=== PATIENT | male | born 1955 | race Caucasian/White ===

== ENCOUNTER → 2020-05-26 08:27 | Outpatient (BNVA) | payer BC, SELFPAY | PROVIDERS: PCP Internal Medicine; Visit Provider Urology | DX: N32.0 Bladder-neck obstruction (principal); N52.9 Male erectile dysfunction, unspecified | CPT/HCPCS: 81002 ==

== ENCOUNTER → 2020-11-22 09:06 | Outpatient (BNVA) | payer BC, SELFPAY | PROVIDERS: PCP Internal Medicine; Visit Provider Urology | DX: N52.9 Male erectile dysfunction, unspecified (principal); N32.0 Bladder-neck obstruction | CPT/HCPCS: 51798 ==

== ENCOUNTER → 2021-08-18 13:38 | Outpatient (BNVA) | payer MEDICARE, SELFPAY | PROVIDERS: PCP Internal Medicine; Visit Provider Urology | DX: N52.9 Male erectile dysfunction, unspecified (principal); N32.0 Bladder-neck obstruction; Z79.899 Other long term (current) drug therapy | CPT/HCPCS: Q3014 ==

== ENCOUNTER 2023-01-29 14:48 | Outpatient (AMB) | payer MEDICARE, BC, SELFPAY ==
--- NOTE | 2023-01-29 15:04 | MHC.OFFVIS ---
Intake Intake Visit Reasons: 1Y PVR(E.D/Bladder Outlet Obs) Intake Note: Patient is Present for Follow Up PVR Urology Medication: Tadalafil, Sildenafil Antibiotic Allergies:Penicillin Blood Thinners: None [facility] PVR: Compliants: Allergies penicillin G Allergy (Unknown, Verified 08/18/21 13:39) unknown Cortisone Allergy (Unknown, Uncoded 08/18/21 13:39) unknown Coding
--- NOTE | 2023-01-29 15:06 | A.OFFVIS_ITS ---
Intake Intake Visit Reasons: 1Y(Erectile Dys) Intake Note: Patient is Present for Follow Up Urology Medication: Tadalafil, Sildenafil Antibiotic Allergies: Penicllin Blood Thinners: None Pharmacy: [facility] Allergies penicillin G Allergy (Unknown, Verified 01/29/23 15:07) unknown Cortisone Allergy (Unknown, Uncoded 01/29/23 15:07) unknown Medication List - Last Reconciled 01/29/23 by Clifford Shaikh MD atorvastatin 20 mg PO DAILY azithromycin 250 mg PO DIRECTED lisinopril 10 mg PO DAILY omeprazole 10 mg PO DAILY sildenafil 100 mg PO DAILY PRN 30 days tadalafil 5 mg PO DAILY PRN 90 days HPI HPI Comments History of Present Illness Details Joe CORREA is a very pleasant male. He is a patient of Dr Hernandez. He is seen for the following urologic conditions. - lower urinary tract symptoms - erectile dysfunction Follow-up from trial daily Cialis Doing well Like to continue Has occasional difficulty with urination after taking Sudafed based medications. Recommend Advil p.m. for sleep. Erectile dysfunction Longstanding Headaches Viagra Good salvage with daily Cialis Lower Urinary Tract Symptoms: Good response intermittent pelvic floor exercises Current visit is for further evaluation of, lower urinary tract symptoms - primarily postvoid dribbling. Current treatment includes observation. Prior treatments include procedure 2014 , TURP. Prostate Symptom Score Mild (0-8), Bother 2. PSA 04/14 PSA 0.47 04/16 .42. Prostate volume 30-50gm. Follow-up in 12 months Review of Systems Const Denies chills and Denies fever(s) Card Reports no additional complaints and Denies syncope Resp Denies cough GI Denies abdominal pain and Denies heartburn Reports as per HPI and Denies change in libido Neuro Denies syncope Psych Denies change in libido Endo Denies change in libido Physical Exam Const General: cooperative, healthy appearing, comfortable and no acute distress Orientation/consciousness: patient oriented x3 HEENT Face and sinus: Yes normal facial exam Mouth: moist mucous membranes Neck Neck: Yes normal visual inspection, Yes full ROM and Yes trachea midline Chest Chest palpation & inspection: normal inspection of the chest Resp Effort & Inspection: normal respiratory effort, able to speak in complete sentences and no respiratory distress GI Inspection: Yes normal to inspection Back/Spine/Pelvis Cervical Spine: normal cervical lordosis Thoracic/Lumbar Spine: thoracic and lumbar spine normal to inspection Skin General skin exam: no rashes or lesions noted Neuro General: patient oriented x3, gait normal, tone normal and moves all extremities Extrem General: Yes normal to inspection and Yes capillary refill normal Assessment & Plan Assessment & Plan (1) Erectile dysfunction: Code(s): N52.9 - Male erectile dysfunction, unspecified Qualifiers: Erectile dysfunction type: vasculogenic Vasculogenic erectile dysfunction type: due to arterial insufficiency Qualified Code(s): N52.01 - Erectile dysfunction due to arterial insufficiency (2) Bladder outlet obstruction: Code(s): N32.0 - Bladder-neck obstruction Plan Six month follow-up Patient Instructions: Imaging studies, laboratory and physical exam results were discussed and reviewed in detail. No major barriers to patient understanding were identified. An opportunity to ask questions regarding the treatment plan was provided. All questions were answered. The patient expressed understanding and agreement with the above treatment plan. The patient is aware they should contact our office by phone for worsening of their current condition or the appearance of new urologic symptoms. Compliance is encouraged with any medications and followup testing that is ordered. It is a privilege to participate in the urologic care of your patient. If you have any questions or concerns regarding treatment for the above conditions, or other urologic issues, please do not hesitate to contact me. The office telephone contact is [phone]. This note is constructed using voice recognition software. While every effort has been made to ensure accuracy chain forming machine operator errors may have been included. Yours sincerely, Dr Clifford Shaikh MD, [facility] - Urology Providers of Expert, Compassionate Care for the Genitourinary System Coding Level of Care Code Est Pt Level 3 (20494) Diagnoses Erectile dysfunction due to arterial insufficiency N52.01 Erectile dysfunction type: vasculogenic Vasculogenic erectile dysfunction type: due to arterial insufficiency Bladder outlet obstruction N32.0
== END 2023-01-29 15:32 | disposition home or self-care (01) ==
PROVIDERS: PCP Internal Medicine; Visit Provider Urology
DX: N52.01 Erectile dysfunction due to arterial insufficiency (principal); N32.0 Bladder-neck obstruction
CPT/HCPCS: 99213

== ENCOUNTER → 2023-01-29 14:48 | Outpatient (BNVA) | payer MEDICARE, BC, SELFPAY | PROVIDERS: PCP Internal Medicine; Visit Provider Urology | DX: N32.0 Bladder-neck obstruction (principal); N52.01 Erectile dysfunction due to arterial insufficiency | CPT/HCPCS: 99212 ==

== ENCOUNTER 2023-05-24 12:40 | Outpatient (REF) | payer MEDICARE, BC, SELFPAY ==
[2023-05-24 16:32] LABS: Urine Cytology See Pathology rpt
== END 2023-05-24 12:41 | disposition home or self-care (01) ==
LOC: HO.LNP 12:40
PROVIDERS: PCP Internal Medicine; Visit Provider Nurse Practitioner Family
DX: N32.0 Bladder-neck obstruction (principal); R39.9 Unspecified symptoms and signs involving the genitourinary system; N52.01 Erectile dysfunction due to arterial insufficiency
CPT/HCPCS: 81003; 88112; 99212

== ENCOUNTER 2023-05-24 12:40 | Outpatient (AMB) | payer MEDICARE, BC, SELFPAY ==
--- NOTE | 2023-05-24 13:05 | MHC.OFFVIS ---
Intake Intake Visit Reasons: hematuria/ potential cytology Intake Note: Patient is Present for hematuria Urology Medication: Tadalafil, Sildenafil Antibiotic Allergies: Penicllin Blood Thinners: None Pharmacy: [facility] Cotton Wringer Required: No Accompanied by: Self / Same As Patient Allergies penicillin G Allergy (Unknown, Verified 05/25/23 18:03) unknown Cortisone Allergy (Unknown, Uncoded 05/25/23 18:03) unknown Medication List - Last Reconciled 05/25/23 by SUMEET Clarke- atorvastatin 20 mg PO DAILY lisinopril 10 mg PO DAILY omeprazole 10 mg PO DAILY sildenafil 100 mg PO DAILY PRN 30 days tadalafil 5 mg PO DAILY PRN 90 days HPI HPI Comments History of Present Illness Details Joe is a very pleasant 68-year-old male patient of Dr Hernandez. He has a past medical history of hyperlipidemia, hypertension, diverticulitis, and erectile dysfunction. He presents to the office today for follow-up of his lower urinary tract symptoms. In discussion with the patient today he reports having followed up with urgent care approximately 2-3 weeks ago for ongoing lower urinary tract symptoms he had been experiencing. He reports noting urgency, frequency, lower abdominal bladder pressure/discomfort at which time he seeked urgent care services for further assessment evaluation. He reports and brings with him today urinalysis results that note microscopic hematuria and a pH of 5.5 otherwise unremarkable. He reports having been prescribed an antibiotic for a presumed urinary tract infection and feels this has relieved his symptoms. He reports he continues with left upper and mid abdominal discomfort however continues to follow up with GI regarding this issue as he does have a longstanding history of diverticulitis. He discusses feeling his symptoms have since resolved since making this appointment however wanted to be sure urine today was reviewed. In office urinalysis results reviewed with the patient today. He discusses noting difficulty with his urination when taking medications for his allergies. When asked he reports feeling Cialis 5 mg daily to be effective for his longstanding history of erectile dysfunction. PSA 05/22--0.4. He otherwise offers no other issues or concerns at this time. PREVIOUS OFFICE NOTE/REVIEW OF CHART: Erectile dysfunction Longstanding Headaches Viagra Good salvage with daily Cialis Lower Urinary Tract Symptoms: Good response intermittent pelvic floor exercises Current visit is for further evaluation of, lower urinary tract symptoms - primarily postvoid dribbling. Current treatment includes observation. Prior treatments include procedure 2015 , TURP. Prostate Symptom Score Mild (0-8), Bother 2. PSA 04/14 PSA 0.47 04/16 .42. Prostate volume 30-50gm. Review of Systems Const Reports as per HPI Eyes Reports no additional complaints ENT Reports no additional complaints Card Reports as per HPI Resp Reports no additional complaints GI Reports as per HPI Reports as per HPI Musc Reports no additional complaints Neuro Reports no additional complaints Psych Reports no additional complaints Endo Reports no additional complaints John/Lymph Reports no additional complaints Aller/Immun Reports no additional complaints Physical Exam Const General: cooperative, healthy appearing, comfortable, no acute distress, well developed, alert and awake Orientation/consciousness: patient oriented x3 Limitations: no limitations HEENT Head: Yes normal to inspection, Yes normocephalic and Yes atraumatic Ears: hearing grossly normal bilaterally Eyes General: appearance normal, both eyes and all related structures Neck Neck: Yes normal visual inspection and Yes trachea midline Chest Chest palpation & inspection: normal inspection of the chest Resp Effort & Inspection: normal respiratory effort and able to speak in complete sentences Cardio Rate: regular rate GI Inspection: Yes normal to inspection General: Yes no CVA tenderness Back/Spine/Pelvis Back: no CVA tenderness Skin General skin exam: no rashes or lesions noted Neuro General: patient oriented x3 Extrem General: Yes normal to inspection Psych Appearance: grossly normal and well kempt Mental Status: mental status grossly normal Speech and movement: Normal speech and movement present and Clear speech present Affect: normal affect Attitude: cooperative Thought process: Normal thought process present Thought content: Normal thought content present Insight: Fair insight present (Psych) Judgement: Fair judgement present (Psych) Results AMB Urinalysis, Automated UA Leukoctes 0 Gm/uL Last Edit by [employer] on 05/24/23 13:18 UA Nitrite Negative Last Edit by [employer] on 05/24/23 13:18 UA Urobilinogen 0.2 mg/dL Last Edit by [employer] on 05/24/23 13:18 UA Protein 0 mg/dL Last Edit by [employer] on 05/24/23 13:18 UA pH 6.5 Last Edit by [employer] on 05/24/23 13:18 UA Blood 10 Benigno/uL Last Edit by Stiven Enciso on 05/24/23 13:18 UA Specific [place] 1.010 Last Edit by Stiven Enciso on 05/24/23 13:18 UA Ketone Negative Last Edit by Stiven Enciso on 05/24/23 13:18 UA Bilirubin 0 mg/dL Last Edit by Stiven Enciso on 05/24/23 13:18 UA Glucose 0 mg/dL Last Edit by Stiven Enciso on 05/24/23 13:18 Results Reviewed Results Reviewed: Laboratory Last Values Urine pH (Auto) 6.5 05/24/23 13:10 Specific [place] (Auto) 1.010 05/24/23 13:10 Urine Protein (Auto) 0 mg/dL 05/24/23 13:10 Glucose (UA)(Auto) 0 mg/dL 05/24/23 13:10 Urine Ketones (Auto) Negative 05/24/23 13:10 Urine Blood (Auto) 10 Benigno/uL 05/24/23 13:10 Urine Nitrite (Auto) Negative 05/24/23 13:10 Urine Bilirubin (Auto) 0 mg/dL 05/24/23 13:10 Urine Urobilinogen (Auto) 0.2 mg/dL 05/24/23 13:10 Leukocyte Esterase (Auto) 0 Gm/uL 05/24/23 13:10 Assessment & Plan Assessment & Plan (1) Lower urinary tract symptoms: Code(s): R39.9 - Unspecified symptoms and signs involving the genitourinary system (2) Erectile dysfunction: Code(s): N52.9 - Male erectile dysfunction, unspecified Qualifiers: Erectile dysfunction type: vasculogenic Vasculogenic erectile dysfunction type: due to arterial insufficiency Qualified Code(s): N52.01 - Erectile dysfunction due to arterial insufficiency (3) Bladder outlet obstruction: Code(s): N32.0 - Bladder-neck obstruction Plan In office urinalysis results reviewed with the patient today; as noted above. Recent PSA results reviewed with the patient today; as noted above. Patient reports lower urinary tract symptoms have since resolved. Discussed, educated, and stressed the importance of drinking water daily. Continue Cialis 5 mg daily as discussed Discussed at length potential causes for lower urinary tract symptoms patient had been experiencing. Keep scheduled follow-up with Dr. Shaikh; or call sooner with any questions, concerns, and or issues. Orders: Orders Urine Cytology 05/24/23 N32.0 - Bladder-neck obstruction AMB Urinalysis Automated 05/24/23 Z13.9 - Encounter for screening, unspecified Patient Instructions: The patient had an opportunity to ask questions regarding the treatment plan. All questions were answered. Physical exam, labs, and imaging were discussed and reviewed in detail. As well as risks, benefits, and discussion of treatment choices. No major barriers to understanding were identified. The patient expressed understanding and agreement with the above treatment plan. The patient was made aware they should contact our office by phone for worsening of their current condition, the appearance of new symptoms, or with any questions or concerns. Compliance is encouraged with any medications and follow up testing that is ordered. It is a privilege to be allowed the opportunity to participate in? your urological care.? Again, if you have any questions or concerns If you have any questions or concerns please do not hesitate to contact me. The office is [phone]. This note is constructed using voice recognition software. While every effort has been made to ensure accuracy loan analyst errors may have been included. Yours sincerely, TIMBO Clarke Coding Level of Care Code Est Pt Level 3 (61816) Diagnoses Lower urinary tract symptoms R39.9 Erectile dysfunction due to arterial insufficiency N52.01 Erectile dysfunction type: vasculogenic Vasculogenic erectile dysfunction type: due to arterial insufficiency Bladder outlet obstruction N32.0
== END 2023-05-24 13:47 | disposition home or self-care (01) ==
PROVIDERS: PCP Internal Medicine; Visit Provider Nurse Practitioner Family
DX: R39.9 Unspecified symptoms and signs involving the genitourinary system (principal); N52.01 Erectile dysfunction due to arterial insufficiency; N32.0 Bladder-neck obstruction
CPT/HCPCS: 99213

== ENCOUNTER 2023-06-20 14:50 | Outpatient (REF) | payer MEDICARE, BC, SELFPAY ==
[2023-06-20 16:00] LABS: Appearance Urine Clear; Color Urine Yellow; Glucose Urine UA Negative (Negative); Leukocyte Esterase Urine Negative (Negative); Nitrite Urine Negative (Negative); PH 6.5 (5.0-9.0); Specific Gravity - Urine 1.015 (1.005-1.025); Urine Blood Negative (Negative); Urine Ketones Negative (Negative); Urine Protein Negative (Neg-Trace)
[2023-06-20 16:06] LABS: Bacteria Urine None Seen (None Seen); Hyaline Casts Urine 0-2 /LPF (0-2); RBC Urine 0-2 /HPF (0-2); Squamous Epithelial Cell Urine 0-2 /HPF (0-2); WBC Urine 0-5 /HPF (0-5)
== END 2023-06-20 14:51 | disposition home or self-care (01) ==
LOC: HO.HMGCLDS 14:50
PROVIDERS: PCP Internal Medicine; Visit Provider Nurse Practitioner Family
DX: R39.9 Unspecified symptoms and signs involving the genitourinary system (principal)
CPT/HCPCS: 81001; 87086

== ENCOUNTER 2023-08-06 08:17 | Outpatient (AMB) | payer MEDICARE, BC, SELFPAY ==
--- NOTE | 2023-08-06 08:25 | MHC.OFFVIS ---
Intake Intake Visit Reasons: 6M PVR(Confirmed) Intake Note: Patient is Present for Follow Up Urology Medication: Sildenafil, Tadalafil Antibiotic Allergies: Penicillin Blood Thinners: None Pharmacy: [facility] PVR: 0 Allergies penicillin G Allergy (Unknown, Verified 08/06/23 08:25) unknown Cortisone Allergy (Unknown, Uncoded 08/06/23 08:25) unknown Medication List - Last Reconciled 08/06/23 by Clifford hSaikh MD atorvastatin 20 mg PO DAILY dicyclomine 10 mg PO Q6H PRN hydroxyzine HCl 25 mg PO DAILY lisinopril 10 mg PO DAILY losartan 25 mg PO DAILY omeprazole 10 mg PO DAILY sildenafil 100 mg PO DAILY PRN 30 days tadalafil 5 mg PO DAILY PRN 90 days tamsulosin 0.4 mg PO BEDTIME 30 days HPI HPI Comments History of Present Illness Details Joe is a pleasant male. He has a patient Dr. Hernandez. He is seen for the following urologic conditions - lower urinary tract symptoms - erectile dysfunction Had lower abdominal bladder pressure and discomfort in April. UA showed microscopic hematuria. Low pH. Was given UTI medication and symptoms resolved. Three-month follow-up with PVR 0 cc Did have prior episode where he saw blood Noticing weakness of stream Will trial tamsulosin in organized cystoscopy Has upcoming CT colorectal purposes Erectile dysfunction Longstanding Headaches Viagra Good salvage with daily Cialis Lower Urinary Tract Symptoms: Good response intermittent pelvic floor exercises Current visit is for further evaluation of, lower urinary tract symptoms - primarily postvoid dribbling. Current treatment includes observation. Prior treatments include procedure 2014 , TURP. Prostate Symptom Score Mild (0-8), Bother 2. PSA 04/14 PSA 0.47 04/16 .42, 05/22 0.4 Prostate volume 30-50gm. [facility] Medical History (Updated 08/06/23 @ 08:53 by Clifford Shaikh MD) Hypercholesterolemia HTN (hypertension) Surgical History (Updated 08/06/23 @ 08:35 by MILY Jordan) History of prostate surgery History of carpal tunnel release History of appendectomy Review of Systems Const Denies chills and Denies fever(s) Card Reports no additional complaints and Denies syncope Resp Denies cough GI Denies abdominal pain and Denies heartburn Reports as per HPI and Denies change in libido Neuro Denies syncope Psych Denies change in libido Endo Denies change in libido Physical Exam Const General: cooperative, healthy appearing, comfortable and no acute distress Orientation/consciousness: patient oriented x3 HEENT Face and sinus: Yes normal facial exam Mouth: moist mucous membranes Neck Neck: Yes normal visual inspection, Yes full ROM and Yes trachea midline Chest Chest palpation & inspection: normal inspection of the chest Resp Effort & Inspection: normal respiratory effort, able to speak in complete sentences and no respiratory distress GI Inspection: Yes normal to inspection Back/Spine/Pelvis Cervical Spine: normal cervical lordosis Thoracic/Lumbar Spine: thoracic and lumbar spine normal to inspection Skin General skin exam: no rashes or lesions noted Neuro General: patient oriented x3, gait normal, tone normal and moves all extremities Extrem General: Yes normal to inspection and Yes capillary refill normal Office Procedures Post Void Residual Post Residual Void Post Void Residual (PVR): 0 [id number] Void Residual by ultrasound Assessment & Plan Assessment & Plan (1) Bladder outlet obstruction: Code(s): N32.0 - Bladder-neck obstruction (2) Erectile dysfunction: Code(s): N52.9 - Male erectile dysfunction, unspecified Qualifiers: Erectile dysfunction type: vasculogenic Vasculogenic erectile dysfunction type: due to arterial insufficiency Qualified Code(s): N52.01 - Erectile dysfunction due to arterial insufficiency (3) Lower urinary tract symptoms: Code(s): R39.9 - Unspecified symptoms and signs involving the genitourinary system (4) Microscopic hematuria: Code(s): R31.29 - Other microscopic hematuria Plan Trial tamsulosin Two month follow-up cystoscopy for microscopic hematuria Orders: Orders AMB Post Void Residual by ultrasound Today N32.0 - Bladder-neck obstruction Medications: New tamsulosin 0.4 mg PO BEDTIME 30 caps 1RF 30 days N32.0 - Bladder-neck obstruction, N40.1 - Benign prostatic hyperplasia with lower urinary tract symptoms, R35.1 - Nocturia Refilled tadalafil 5 mg PO DAILY PRN 90 tabs 1RF sexual activity 90 days N52.01 - Erectile dysfunction due to arterial insufficiency Patient Instructions: Imaging studies, laboratory and physical exam results were discussed and reviewed in detail. No major barriers to patient understanding were identified. An opportunity to ask questions regarding the treatment plan was provided. All questions were answered. The patient expressed understanding and agreement with the above treatment plan. The patient is aware they should contact our office by phone for worsening of their current condition or the appearance of new urologic symptoms. Compliance is encouraged with any medications and followup testing that is ordered. It is a privilege to participate in the urologic care of your patient. If you have any questions or concerns regarding treatment for the above conditions, or other urologic issues, please do not hesitate to contact me. The office telephone contact is [phone]. This note is constructed using voice recognition software. While every effort has been made to ensure accuracy head of operation and logistics errors may have been included. Yours sincerely, Dr Clifford Shaikh MD, [facility] - Urology Providers of Expert, Compassionate Care for the Genitourinary System Coding Level of Care Code Est Pt Level 4 (79795) Diagnoses Bladder outlet obstruction N32.0 Erectile dysfunction due to arterial insufficiency N52.01 Erectile dysfunction type: vasculogenic Vasculogenic erectile dysfunction type: due to arterial insufficiency Lower urinary tract symptoms R39.9 Microscopic hematuria R31.29 CPT Codes Post Residual Void - PVR CPT Code: 28308-[id number] Void Residual by ultrasound ([id number])
== END 2023-08-06 08:55 | disposition home or self-care (01) ==
PROVIDERS: PCP Internal Medicine; Visit Provider Urology
DX: N32.0 Bladder-neck obstruction (principal); N52.01 Erectile dysfunction due to arterial insufficiency; R39.9 Unspecified symptoms and signs involving the genitourinary system; R31.29 Other microscopic hematuria
CPT/HCPCS: 99214

== ENCOUNTER → 2023-08-06 08:17 | Outpatient (BNVA) | payer MEDICARE, BC, SELFPAY | PROVIDERS: PCP Internal Medicine; Visit Provider Urology | DX: N32.0 Bladder-neck obstruction (principal); N52.01 Erectile dysfunction due to arterial insufficiency; R39.9 Unspecified symptoms and signs involving the genitourinary system; R31.29 Other microscopic hematuria | CPT/HCPCS: 51798; 99212 ==

== ENCOUNTER 2023-10-08 08:44 | Outpatient (AMB) | payer MEDICARE, BC, SELFPAY ==
--- NOTE | 2023-10-08 09:14 | A.OFFVIS_ITS ---
Intake Visit Reasons: cystoscopy(Hematuria) Intake Note: Patient is Present for Cystoscopy Urology Med: Sildenafil, Tadalafil, Tamsulosin Antibiotic Allergy:Penicillin Blood Thinner:None URO- G Disposable Cystoscope lot: [id number] exp:05/30/2026 Allergies penicillin G Allergy (Unknown, Verified 10/08/23 09:14) unknown Cortisone Allergy (Unknown, Uncoded 10/08/23 09:14) unknown Medication List - Last Reconciled 10/08/23 by Clifford Shaikh MD atorvastatin 20 mg PO DAILY dicyclomine 10 mg PO Q6H PRN hydroxyzine HCl 25 mg PO DAILY lisinopril 10 mg PO DAILY losartan 25 mg PO DAILY omeprazole 10 mg PO DAILY sildenafil 100 mg PO DAILY PRN 30 days tadalafil 5 mg PO DAILY PRN 90 days tamsulosin 0.4 mg PO BEDTIME 30 days HPI Comments Details: Joe is a pleasant male. He has a patient Dr. Hernandez. He is seen for the following urologic conditions - lower urinary tract symptoms - erectile dysfunction Had lower abdominal bladder pressure and discomfort in April. UA showed microscopic hematuria. Low pH. Was given UTI medication and symptoms resolved. Three-month follow-up with PVR 0 cc Cystoscopy today normal Prior TURP with open bladder neck Erectile dysfunction Longstanding Headaches Viagra Good salvage with daily Cialis Lower Urinary Tract Symptoms: Good response intermittent pelvic floor exercises Current visit is for further evaluation of, lower urinary tract symptoms - primarily postvoid dribbling. Current treatment includes observation. Prior treatments include procedure 2014 , TURP. Prostate Symptom Score Mild (0-8), Bother 2. PSA 04/14 PSA 0.47 04/16 .42, 05/22 0.4 Prostate volume 30-50gm. [facility] Medical History Hypercholesterolemia HTN (hypertension) Surgical History History of prostate surgery History of carpal tunnel release History of appendectomy Review of Systems Const Denies chills and Denies fever(s) Card Reports no additional complaints and Denies syncope Resp Denies cough GI Denies abdominal pain and Denies heartburn Reports as per HPI and Denies change in libido Neuro Denies syncope Psych Denies change in libido Endo Denies change in libido Physical Exam Const General: cooperative, healthy appearing, comfortable and no acute distress Orientation/consciousness: patient oriented x3 HEENT Face and sinus: Yes normal facial exam Mouth: moist mucous membranes Neck Neck: Yes normal visual inspection, Yes full ROM and Yes trachea midline Chest Chest palpation & inspection: normal inspection of the chest Resp Effort & Inspection: normal respiratory effort, able to speak in complete sentences and no respiratory distress GI Inspection: Yes normal to inspection Back/Spine/Pelvis Cervical Spine: normal cervical lordosis Thoracic/Lumbar Spine: thoracic and lumbar spine normal to inspection Skin General skin exam: no rashes or lesions noted Neuro General: patient oriented x3, gait normal, tone normal and moves all extremities Extrem General: Yes normal to inspection and Yes capillary refill normal Office Procedures Cystoscopy Consent Discussed risk and benefit or proposed procedure with the patient. Information consent for procedure given to the patient. Discussed technical aspects, risks, benefits and alternatives in full. Addressed all of the patient's questions and concerns regarding the procedure. The patient demonstrated knowledge and understanding. They wish to proceed with this procedure. Preparation The patient was prepped in the usual manner. A log haul chain feeder was present and in the room. Genitalia was prepped with betadine solution in a sterile manner. Lidocaine Jelly 2% was placed into the urethra and 16Fr flexible Olympus cystoscope was inserted into the meatus after adequate lubrication. Procedure Cystoscopy performed using a disposable Urovue digital 16 Greek cystoscope. Meatus circumcised Urethra anterior and posterior urethra normal Prostatic Urethra TURP defect Bladder examination with retroflexion of cystoscope Bladder Orifices normal shape and position Bladder Capacity normal Trabeculations - Cellule Formation - Diverticulum Formation - Mucosal Erythema - Bladder Tumor - [id number] DISPOSABLE SCOPE URO-G FLEXIBLE SCOPE Procedure code (CPT) selection complete Office Meds lidocaine HCl 2 % mucosal jelly in applicator Performing Provider: Clifford Shaikh MD Performing Location: [facility] Administered by: Vincent Cisneros LPN on 10/08/23 09:35 Dose Route Admin Location Dispensed Lot Number Expiration Date NDC Gas Operations Analyst 10 mL intra-urethral 10 mL nitrofurantoin monohydrate/macrocrystals 100 mg capsule Performing Provider: Clifford Shaikh MD Performing Location: [facility] Administered by: Vincent Cisneros LPN on 10/08/23 09:35 Dose Route Admin Location Dispensed Lot Number Expiration Date NDC Gas Operations Analyst 100 mg PO 1 cap naproxen 500 mg tablet Performing Provider: Clifford Shaikh MD [facility] Administered by: Vincent Cisneros LPN on 10/08/23 09:35 Dose Route Admin Location Dispensed Lot Number Expiration Date NDC Gas Operations Analyst 500 mg PO 1 tab Results AMB Urinalysis, Automated UA Leukoctes 0 Gm/uL Last Edit by MILY Jordan on 10/08/23 09:24 UA Nitrite Negative Last Edit by MILY Jordan on 10/08/23 09:24 UA Urobilinogen 0.2 mg/dL Last Edit by MILY Jordan on 10/08/23 09:2 4 UA Protein 0 mg/dL Last Edit by MILY Jordan on 10/08/23 09:24 UA pH 6.5 Last Edit by MILY Jordan on 10/08/23 09:24 UA Blood 0 Benigno/uL Last Edit by MILY Jordan on 10/08/23 09:24 UA Specific [place] 1.005 Last Edit by MILY Jordan on 10/08/23 09: 24 UA Ketone Negative Last Edit by MILY Jordan on 10/08/23 09:24 UA Bilirubin 0 mg/dL Last Edit by NUVIA JordanA on 10/08/23 09:24 UA Glucose 0 mg/dL Last Edit by MILY Jordan on 10/08/23 09:24 Results Reviewed Results Reviewed: Laboratory Last Values Urine pH (Auto) 6.5 10/08/23 09:15 Specific [place] (Auto) 1.005 10/08/23 09:15 Urine Protein (Auto) 0 mg/dL 10/08/23 09:15 Glucose (UA)(Auto) 0 mg/dL 10/08/23 09:15 Urine Ketones (Auto) Negative 10/08/23 09:15 Urine Blood (Auto) 0 Benigno/uL 10/08/23 09:15 Urine Nitrite (Auto) Negative 10/08/23 09:15 Urine Bilirubin (Auto) 0 mg/dL 10/08/23 09:15 Urine Urobilinogen (Auto) 0.2 mg/dL 10/08/23 09:15 Leukocyte Esterase (Auto) 0 Gm/uL 10/08/23 09:15 Assessment & Plan Assessment & Plan (1) Microscopic hematuria: Code(s): R31.29 - Other microscopic hematuria Category: Medical (2) Lower urinary tract symptoms: Code(s): R39.9 - Unspecified symptoms and signs involving the genitourinary system Category: Medical (3) Erectile dysfunction: Code(s): N52.9 - Male erectile dysfunction, unspecified Category: Medical Qualifiers: Erectile dysfunction type: vasculogenic Vasculogenic erectile dysfunction type: due to arterial insufficiency Qualified Code(s): N52.01 - Erectile dysfunction due to arterial insufficiency Plan Twelve month follow-up Orders: Orders AMB Cystoscopy Today R39.9 - Unspecified symptoms and signs involving the genit ourinary system AMB Urinalysis Automated Today Z13.9 - Encounter for screening, unspecified Patient Instructions: Imaging studies, laboratory and physical exam results were discussed and reviewed in detail. No major barriers to patient understanding were identified. An opportunity to ask questions regarding the treatment plan was provided. All questions were answered. The patient expressed understanding and agreement with the above treatment plan. The patient is aware they should contact our office by phone for worsening of their current condition or the appearance of new urologic symptoms. Compliance is encouraged with any medications and followup testing that is ordered. It is a privilege to participate in the urologic care of your patient. If you have any questions or concerns regarding treatment for the above conditions, or other urologic issues, please do not hesitate to contact me. The office telephone contact is [phone]. This note is constructed using voice recognition software. While every effort has been made to ensure accuracy senior software analyst errors may have been included. Yours sincerely, Dr Clifford Shaikh MD, [facility] - Urology Providers of Expert, Compassionate Care for the Genitourinary System Coding Level of Care Code Est Pt Level 3 (70021) Diagnoses Microscopic hematuria R31.29 Lower urinary tract symptoms R39.9 Erectile dysfunction due to arterial insufficiency N52.01 Erectile dysfunction type: vasculogenic Vasculogenic erectile dysfunction type: due to arterial insufficiency CPT Codes Cystoscopy - CPT: 19794-[id number] ([id number])
== END 2023-10-08 09:55 | disposition home or self-care (01) ==
PROVIDERS: PCP Internal Medicine; Visit Provider Urology
DX: R39.9 Unspecified symptoms and signs involving the genitourinary system (principal); R31.29 Other microscopic hematuria; N52.01 Erectile dysfunction due to arterial insufficiency; Z13.9 Encounter for screening, unspecified
CPT/HCPCS: 52000; 99213

== ENCOUNTER → 2023-10-08 08:44 | Outpatient (BNVA) | payer MEDICARE, BC, SELFPAY | PROVIDERS: PCP Internal Medicine; Visit Provider Urology | DX: N39.43 Post-void dribbling (principal); R31.29 Other microscopic hematuria; R39.9 Unspecified symptoms and signs involving the genitourinary system; N52.01 Erectile dysfunction due to arterial insufficiency | CPT/HCPCS: 52000; 81003; 99212 ==

== ENCOUNTER 2024-10-07 08:25 | Outpatient (AMB) | payer MEDICARE, BC, SELFPAY ==
--- NOTE | 2024-10-07 08:31 | A.OFFVIS_ITS ---
Intake Visit Reasons: 1yr/PVR Intake Note: Patient is Present for 1y/pvr Urology Med:Tadalafil, Tamsulosin Antibiotic Allergy:Penicillin G Blood Thinner:None TODAY'S PVR:0ML'S Newspaper Subscription Solicitor Required: No Allergies penicillin G Allergy (Unknown, Verified 10/07/24 08:32) unknown Cortisone Allergy (Unknown, Uncoded 10/07/24 08:32) unknown HPI Comments Details: Joe is a pleasant male. He has a patient Dr. Hernandez. He is seen for the following urologic conditions - lower urinary tract symptoms - erectile dysfunction Yearly follow-up Continues on combination tadalafil and tamsulosin UA normal no blood 10/20 Cystoscopy normal Prior TURP with open bladder neck Erectile dysfunction Longstanding Headaches Viagra Good salvage with daily Cialis Lower Urinary Tract Symptoms: Good response intermittent pelvic floor exercises Current visit is for further evaluation of, lower urinary tract symptoms - primarily postvoid dribbling. Current treatment includes observation. Prior treatments include procedure 2014 , TURP. Prostate Symptom Score Mild (0-8), Bother 2. PSA 04/14 PSA 0.47 04/16 .42, 05/22 0.4 Prostate volume 30-50gm. [facility] Medical History Hypercholesterolemia HTN (hypertension) Surgical History History of prostate surgery History of carpal tunnel release History of appendectomy Review of Systems Const Denies chills and Denies fever(s) Card Reports no additional complaints and Denies syncope Resp Denies cough GI Denies abdominal pain and Denies heartburn Reports as per HPI and Denies change in libido Neuro Denies syncope Psych Denies change in libido Endo Denies change in libido Physical Exam Const General: cooperative, healthy appearing, comfortable and no acute distress Orientation/consciousness: patient oriented x3 HEENT Face and sinus: Yes normal facial exam Mouth: moist mucous membranes Neck Neck: Yes normal visual inspection, Yes full ROM and Yes trachea midline Chest Chest palpation & inspection: normal inspection of the chest Resp Effort & Inspection: normal respiratory effort, able to speak in complete sentences and no respiratory distress GI Inspection: Yes normal to inspection Back/Spine/Pelvis Cervical Spine: normal cervical lordosis Thoracic/Lumbar Spine: thoracic and lumbar spine normal to inspection Skin General skin exam: no rashes or lesions noted Neuro General: patient oriented x3, gait normal, tone normal and moves all extremities Extrem General: Yes normal to inspection and Yes capillary refill normal Office Procedures Post Void Residual Post Residual Void Post Void Residual (PVR): 0 [id number] Void Residual by ultrasound Assessment & Plan Assessment & Plan (1) Bladder outlet obstruction: Code(s): N32.0 - Bladder-neck obstruction Category: Medical (2) Erectile dysfunction: Code(s): N52.9 - Male erectile dysfunction, unspecified Category: Medical Qualifiers: Erectile dysfunction type: vasculogenic Vasculogenic erectile dysfunction type: due to arterial insufficiency Qualified Code(s): N52.01 - Erectile dysfunction due to arterial insufficiency Plan Twelve month follow-up Orders: Orders AMB Urinalysis Automated Today Z13.9 - Encounter for screening, unspecified Prostate Specific Antigen 12 Months R39.9 - Unspecified symptoms and signs involving the genitourinary system Patient Instructions: This note is constructed using voice recognition software. While every effort has been made to ensure accuracy round kiln drawer errors may have been included. Imaging studies, laboratory and physical exam results were discussed and reviewed in detail. No major barriers to patient understanding were identified. An opportunity to ask questions regarding the treatment plan was provided. All questions were answered. The patient expressed understanding and agreement with the above treatment plan. The patient is aware they should contact our office by phone for worsening of their current condition or the appearance of new urologic symptoms. Compliance is encouraged with any medications and followup testing that is ordered. It is a privilege to participate in the urologic care of your patient. If you have any questions or concerns regarding treatment for the above conditions, or other urologic issues, please do not hesitate to contact me. The office telephone contact is [phone]. Sincerely, Dr Clifford Shaikh MD, [facility] - Urology Compassionate Specialist Care for the Genitourinary System Coding Level of Care Code Est Pt Level 4 (18338) Diagnoses Bladder outlet obstruction N32.0 Erectile dysfunction due to arterial insufficiency N52.01 Erectile dysfunction type: vasculogenic Vasculogenic erectile dysfunction type: due to arterial insufficiency CPT Codes Post Residual Void - PVR CPT Code: [id number]-[id number] Void Residual by ultrasound ([id number])
--- OUTSIDE RECORDS SUMMARY | 2024-10-07 08:35 | XMS_ITS | Clinical Summary ---
Author Organization [facility] Address [address] [place] [address] Care Team Providers Care Radio Time Buyer Name Role Phone Willy Lema Primary Care Provider [phone] Allergies Active Allergy Reactions Criticality Noted Date Comments Cortisone 05/25/2019 Red streak Penicillins 05/25/2019 Other reaction(s): Rash/Dermatitis Medications Medication Sig Dispensed Refills Start Date End Date Status atorvastatin (LIPITOR) tablet 20 mg Take 1 tablet (20 mg total) by mouth daily. 0 07/04/2022 Active QuickVue At-Home Covid-19 Test KIT TEST DIRECTED TODAY 0 07/02/2022 Active lisinopril (PRINIVIL,ZESTRIL) tablet 10 mg Take 1 tablet (10 mg total) by mouth daily. 0 06/29/2022 Active Active Problems No known active problems Social History Tobacco Use Types Packs/Day Years Used Date Smoking Tobacco: Never Smokeless Tobacco: Never Tobacco Cessation:Counseling Given: Not Answered Alcohol Use Standard Drinks/Week Comments Yes 0 (1 standard drink = 0.6 oz pur e alcohol) Social Sex and Gender Information Value Date Recorded Sex Assigned at Male 06/28/2022 10:42 AM EST Gender Identity Not on file Sexual Orientation Not on file Job Start Date Occupation Industry Not on file Not on file Not on file Last Filed Vital Signs Vital Sign Reading Time Taken Comments Blood Pressure 147/84 07/18/2022 1:54 PM EDT Pulse 74 07/18/2022 1:54 PM EDT Temperature 36.8 ??C (98.3 ??F) 07/18/2022 1:54 PM ED T Respiratory Rate - - Oxygen Saturation 95% 07/18/2022 1:54 PM EDT Inhaled Oxygen Concentration - - Weight 76.7 kg (169 lb) 07/18/2022 1:54 PM EDT Height - - Body Mass Index - - Plan of Treatment Health Maintenance Due Date Last Done Comments Hepatitis C Screening 1954 COVID-19 Vaccine (#1) 1954 Depression Screening 1966 Preventative Health Evaluation 1972 DTap / Tdap / Td (1 - Tdap) 1973 Colon Cancer Screening (Colonoscopy) 1999 Shingrix-Zoster Vaccine (1 of 2) 2004 Fall Risk Assessment 2019 Pneumococcal Vaccine (1 of 1 - PCV) 2019 Influenza Vaccine (Season Ended) 2024 RSV Adult > 60+ Yrs or Pregn ant (1 - 1-dose 75+ series) 2029 Hepatitis B Vaccines Aged Out No long er eligible based on patient's age to complete this topic RSV Ped < 20 months Aged Out No longe r eligible based on patient's age to complete this topic Care Teams Radio Time Buyer Relationship Specialty Start Date End Date Willy Lema DO [address] [place] [address] [address] [place] [address] PCP - General Internal Medicine 06/28/22
== END 2024-10-07 08:54 | disposition home or self-care (01) ==
PROVIDERS: PCP Internal Medicine; Visit Provider Urology
DX: N32.0 Bladder-neck obstruction (principal); N52.01 Erectile dysfunction due to arterial insufficiency; Z13.9 Encounter for screening, unspecified
CPT/HCPCS: 99214

== ENCOUNTER → 2024-10-07 08:25 | Outpatient (BNVA) | payer MEDICARE, BC, SELFPAY | PROVIDERS: PCP Internal Medicine; Visit Provider Urology | DX: N32.0 Bladder-neck obstruction (principal); N52.01 Erectile dysfunction due to arterial insufficiency | CPT/HCPCS: 51798; 81003; 99212 ==